=== PATIENT | female | born 1990 | race Caucasian/White ===

== ENCOUNTER 2016-05-30 04:54 | Inpatient (IN) | payer BC ==
[~2016-05-30] VITALS: Ht 175.3 cm; Wt 86.4 kg
[~2016-05-30 04:54] MED LIST: PRENTAB26 PO
[2016-05-30] MEDS ORDERED: LACTATED RINGER'S 1000ML 1,000 ML IV SCH ×2 (05:12→17:33)
[2016-05-30] MEDS ORDERED: LACTATED RINGER'S 1000ML 1,000 ML IV PRN (05:12)
--- NOTE | 2016-05-30 05:22 | Progress Note ---
Progress Note Date of Service May 30, 2016. Progress Note Admit Note 25 F P0000 at 39.4 weeks admitted with SROM clear fluid. Having irregular contractions mild rating pain as 3. FHT Cat 1. GBS is negative. Cervix /- 2/vertex/posterior/soft. EFW 7.5 lbs. Will have patient ambulate for now.
[2016-05-30 05:28] VITALS: Ht 175.3 cm; Wt 86.4 kg
[2016-05-30 06:25] LABS: MEAN CELL VOLUME 88.5 fL (80-100); PLATELET COUNT 241 K/uL (130-400); RED BLOOD COUNT 4.52 M/uL (4.2-5.4); WHITE BLOOD COUNT 14.83 K/uL (4.8-10.8)
[2016-05-30] MEDS ORDERED: LACTATED RINGER'S 1000ML 500 ML IV PRN (10:40)
[2016-05-30] MEDS ORDERED: OXYTOCIN 30 UNITS/500ML NSS IV PRN ×2 (10:45→17:45)
[2016-05-30] MEDS ORDERED: MISOPROSTOL 200 MCG TAB ONE ×2 (17:17→17:25)
[2016-05-30] MEDS ORDERED: METHYLERGONOVINE MALEATE 0.2 MG/ML AMP ONE (17:27)
[2016-05-30] MEDS ORDERED: HYDROCORTISONE ACETATE 25 MG SUPP PR PRN (17:45)
[2016-05-30] MEDS ORDERED: MISOPROSTOL 200 MCG TAB PR SCH (17:45)
[2016-05-30] MEDS ORDERED: DIPHTHERIA/TETANUS/PERTUSSIS 0.5 ML SYR/VIAL IM. ONE (17:45)
[2016-05-30] MEDS ORDERED: IBUPROFEN 600 MG TAB PO PRN (17:45)
[2016-05-30] MEDS ORDERED: LANOLIN OINT EXT PRN ×2 (17:45)
[2016-05-30] MEDS ORDERED: BENZOCAINE 20% AER SPR 82.5 GM CAN EXT PRN (17:45)
[2016-05-30] MEDS ORDERED: OXYCODONE/ACETAMINOPHEN 5-325 TAB PO PRN (17:45)
[2016-05-30] MEDS ORDERED: METHYLERGONOVINE MALEATE 0.2 MG/ML AMP IM ONE (17:45)
[2016-05-30] MEDS ORDERED: ACETAMINOPHEN 325 MG TAB PO PRN (17:45)
[2016-05-30] MEDS ORDERED: MEASLES, MUMPS & RUBELLA VIRUS VIAL SQ. ONE (17:45)
[2016-05-30] MEDS ORDERED: SUPERCREAM 0.870 % 15GM JAR EXT PRN (17:45)
[2016-05-30 21:15] VITALS: BP 142/86; PULSE 108; TEMP 36.8
[2016-05-30] MEDS: DOCUSATE SODIUM 100 MG CAP PO SCH (22:03)
--- NOTE | 2016-05-30 22:07 | DELIVERY SUMMARY ---
DATE OF OPERATION: 05/30/2016 TIME OF DELIVERY OF BABY: 16:53 p.m. TIME OF DELIVERY OF PLACENTA: 1705 p.m. DETAILS OF DELIVERY: The patient was found to be fully dilated and desired to push. She pushed for about 20 minutes and delivered the head without difficulty. Shoulders were delivered with minimal traction and baby was handed off to the mother where mouth and nose were suctioned and baby was dried and patient required delayed cord clamping after the pulsation and at 3 minutes, the pulsation of cord ended and the cord was clamped x2 and cut. It was a 3-vessel cord. Cord blood was obtained. The vagina and perineum were checked for lacerations. There were second degree vaginal lacerations on left lower third of vaginal wall and in the posterior vaginal wall. So they were repaired with 2-0 Vicryl in a running locked fashion. Excellent hemostasis was achieved. Then placenta was found to be in the vagina, delivered spontaneously intact and complete. Uterus was explored, found to be empty. The uterus was boggy and passing clots, EBL of 500 and IV oxytocin infusion was started. Bimanual massage was done and the patient was given 800 mcg of Cytotec rectally and the uterus became firm and the bleeding minimized. Baby was a viable female , Apgars 9/10. Weight is 3612 gr. No complications happened and I was present during whole procedure. I attest to the content of the Intraoperative Record and any orders documented therein. Any exceptions are noted below. MTDD
[2016-05-30 23:50] VITALS: BP 126/84; PULSE 86; TEMP 36.8
[2016-05-31 04:15] VITALS: BP 120/75; PULSE 83; TEMP 36.9
[2016-05-31 07:28] LABS: HEMATOCRIT 35.7 % (37-47)
[2016-05-31 08:00] VITALS: BP 101/69; PULSE 94; TEMP 36.9
[2016-05-31] MEDS: DOCUSATE SODIUM 100 MG CAP PO SCH ×2 (08:28→20:20)
[2016-05-31] MEDS: FERROUS SULFATE 325 MG TAB PO SCH (08:28)
--- NOTE | 2016-05-31 10:23 | OB/GYN Progress Note ---
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 Subjective conversation w/ patient, physical exam Ambulation: ambulating normally Voiding: no voiding problems Passing Gas: Yes Diet Tolerance: Clear Liquids Lochia: Moderate Review of Systems Constitutional: No chills, No fatigue, No fever, No problem reported, No sweats , No weakness, No weight loss Respiratory: No cough, No dyspnea at rest, No dyspnea on exertion, No hemoptysis, No problem reported, No shortness of breath, No sputum, No wheezing Cardiac: No PND, No chest pain, No claudication, No edema, No orthopnea, No palpitations, No problem reported Breast: No breast lump, No breast pain, No change in shape, No nipple discharge , No problem reported, No see HPI Abdomen: No GI bleeding, No constipation, No diarrhea, No nausea, No pain, No problem reported, No vomiting Female : No abnormal vaginal bleeding, No dysuria, No hematuria, No incontinence, No problem reported, No see HPI, No urinary frequency, No vaginal discharge Objective Vital Signs Date Time Temp Pulse Resp B/P Pulse Ox O2 Delivery O2 Flow Rate FiO2 05/31/16 08:05 Room Air 05/31/16 08:00 36.9 94 18 101/69 Room Air 05/31/16 04:15 36.9 83 16 120/75 Room Air 05/30/16 23:50 36.8 86 16 126/84 Room Air 05/30/16 23:50 Room Air 05/30/16 21:15 36.8 108 18 142/86 Room Air 05/30/16 21:15 Room Air Physical Exam General Appearance: WELL-APPEARING, WD/WN, NO APPARENT DISTRESS Respiratory/Chest: chest non-tender, lungs clear, normal breath sounds, no respiratory distress, no accessory muscle use Cardiovascular: regular rate, rhythm, no edema, no gallop, no JVD, no murmur Abdomen: normal bowel sounds, non tender, soft, no organomegaly, no pulsatile mass Fundus: Firm Incision Description: Clean, Dry & Intact Extremities: normal range of motion, non-tender, normal inspection, no pedal edema, no calf tenderness Laboratory Results Last 24 Hours Test 05/31/16 07:01 Hemoglobin 12.0 g/dL Hematocrit 35.7 % Assessment and Plan Day Number: 1 Continue Routine Care: Anticipate disch tomorrow
[2016-05-31 11:40] VITALS: BP 115/74; PULSE 96; TEMP 36.4; O2SAT 99
[2016-05-31 16:00] VITALS: BP 108/74; PULSE 93; TEMP 36.3
[2016-05-31] MEDS ORDERED: BISACODYL 5 MG TABEC PO SCH (20:00)
[2016-06-01 00:35] VITALS: BP 120/78; PULSE 94; TEMP 36.8; O2SAT 97
[2016-06-01 06:08] LABS: HEMATOCRIT 32.8 % (37-47); MEAN CELL VOLUME 91.1 fL (80-100); MEAN CORPUSCULAR HEMOGLOBIN 30.6 pg (25-34); MEAN CORPUSCULAR HGB CONC 33.5 g/dl (32-36); MEAN PLATELET VOLUME 10.4 fL (7.4-10.4); PLATELET COUNT 234 K/uL (130-400); WHITE BLOOD COUNT 14.31 K/uL (4.8-10.8)
[2016-06-01] MEDS ORDERED: BISACODYL 10 MG SUPP PR PRN (07:00)
[2016-06-01] MEDS: FERROUS SULFATE 325 MG TAB PO SCH (08:14)
[2016-06-01] MEDS: DOCUSATE SODIUM 100 MG CAP PO SCH (08:15)
[2016-06-01 08:56] VITALS: BP 129/86; PULSE 95; TEMP 36.7; O2SAT 99
[2016-06-01 09:28] VITALS: O2SAT 99
[2016-06-01] MEDS ORDERED: MTR600X PO (09:49)
--- NOTE | 2016-06-01 09:52 | Discharge Instructions ---
Discharge Instructions Date of Service Jun 01, 2016. Admission Reason for Admission: Spontaneous Rupture Of Membranes Discharge Discharge Diagnosis / Problem: term delivered Discharge Goals Goal(s): Routine recovery after delivery Activity Recommendations Activity Limitations: as noted below Lifting Limitations: no more than 10 pounds, gradually increase as tolerated Exercise/Sports Limitations: gradually increase as tolerated May Resume Sexual Activity: after follow-up appointment Shower/Bathe: no limitations Driving or Machine Use: resume 3 days after discharge . Instructions / Follow-Up Instructions / Follow-Up ACTIVITY RECOMMENDATIONS: * Gradual return to full activity over the next 2-3 weeks. * No lifting - nothing heavier than baby over the next 2-3 weeks. * Do not engage in vigorous exercise, sexual activity or sports until cleared by your physician. * Do not drive or operate any motorized equipment until cleared by your physician. * You may shower/bathe daily. BREAST CARE: If you are not breast feeding: * Wear a supportive bra 24 hours a day for one to two weeks. * Avoid stimulating your breasts and nipples as much as possible during the first few weeks after delivery. * When taking a shower, have the warm water hit your back, not breasts. * When your breasts feel full, apply ice packs. Usually three to four times a day helps ease the discomfort. * Take a mild pain medication (Tylenol/Motrin) when you are uncomfortable. If breast feeding: * Use breast milk to lubricate nipples. Lansinoh cream may be used for sore nipples. You do not need to remove cream prior to breast feeding. If using a different brand of cream, check the label for directions regarding removal of cream prior to nursing. * Wear a supportive bra. * If having problems with breasts or breast feeding, call a account consultant or your health care provider. EPISIOTOMY CARE: After delivery, if you have an episiotomy (stitches), the following steps will ease discomfort and aid healing. * For the first 24 hours after delivery, place ice packs next to your episiotomy to help reduce swelling. * After the first 24 hour-period, sitz baths, either portable or in the tub, are suggested. A shower with a shower arm sprayed over the episiotomy may be comforting. * Court care should be done after each voiding and bowel movement. Squirt warm water from a plastic bottle over the perineum (region of the body between the anus and urinary opening) and pat dry. * Use Dermoplast to ease discomfort. Shake container. [place] directly over the episiotomy. * Place a Tucks on a clean sanitary pad next to your episiotomy. OVER THE COUNTER MEDICATION: * For discomfort or pain, you may use Acetaminophen (Tylenol), Ibuprofen (Advil ), or Naproxen (Aleve) following the package directions. * For constipation you may use Colace following the package directions. SPECIAL CARE INSTRUCTIONS: When you are discharged from the hospital, it is important for you to follow the instructions listed below: * During the first week at home, you should be able to care for yourself and your baby. In addition, the usual light household activities are encouraged. * Limit your activities to the way you feel. Do not try to clean the house or move furniture. Be sensible. * If you actively engage in sports and have done so up until the time of your delivery, you may resume these activities as soon as you feel able. This may take up to one month or even longer. Use good judgment. * Continue to take your vitamins for at least six weeks after the of your baby. * Your diet need not be limited unless you were on a special diet before your delivery. Breast-feeding mothers need around 2500 calories per day and at least 64-80 ounces of fluid per day (8 to 10 glasses). * You should eat foods from the four major food groups. Crash diets or fad diets are to be avoided. Eating lean meats, fresh fruits and vegetables, low-fat dairy products, high fiber foods and a regular exercise program, will help you get back to your pre- weight without putting your health at risk. * Constipation is sometimes a problem after delivery. Take a mild laxative as needed. If breast feeding, Milk of Magnesia is acceptable to use. You may use a suppository or Fleets enema if no episiotomy. * A daily shower or tub bath is suggested. Be sure to thoroughly and gently dry the perineum. * A bloody vaginal discharge will usually continue until around four weeks post . A small amount of bleeding may continue for as long as six weeks. Vaginal discharge changes from the bright red bleeding after delivery to pink then brownish and finally yellowish-pink before becoming white and disappearing. * Bleeding may increase with activity. Your first period may come in 4-8 weeks. If you are breast feeding, your period may be delayed even longer. * [place] (sex) can begin whenever both you and your partner feel comfortable and do not have any form of genital infection. It is recommended that you wait until after your return appointment and discuss with your physician. If you have questions, please talk to your health care practitioner. A condom should be used to prevent infection and . * Foreplay, gentle intercourse and lubrication is very important the first several times to prevent pain. A water-based lubricant such as K-Y jelly or Astroglide may be used. * Tampons may be used six weeks after delivery. * Douching should be avoided for 6 weeks after delivery. * If you have RH negative blood and your baby is RH positive, you will receive RHOGAM by injection prior to discharge. The nurse will give you a card to keep with you that has the date and place that you received RHOGAM after delivery. * During your care, you had a Rubella screen done to check for the presence of rubella antibodies in your blood. If your test was negative, you will receive a Rubella vaccine prior to discharge. This vaccine may cause a fever, soreness at the injection site and flu-like symptoms. If these symptoms persist, notify your health care practitioner. is not advised for three months after a Rubella vaccine. There is a higher chance of having a baby with defects if conceived within three months of getting the vaccine. * If you were discharged 24 hours from delivery or before 48 hours: Visiting nurses will come to your home 48 hours after discharge to assess you and your baby. The visiting nurse will meet with you while you are in the hospital to arrange a time and get directions to your home. * Verbalizes understanding of car seat law as reviewed with patient nursing. * Car Seat hand-out given and reviewed with patient by nursing. * Shaken baby information reviewed with patient by nursing. Call you doctor if: * Heavy bleeding (saturating several pads an hour) or passing clots the size of your fist. * A fever >101 degrees F (38.3 degrees C) on two occasions four hours apart and/or chills. * Unusual pain in the pelvic or vaginal areas. * "Baby Blues" lasting longer than two weeks. If you have any questions or concerns, call your health care practitioner at . FOLLOW-UP VISIT: * Please call the office at to schedule a 6 week examination. It is important you keep this appointment. * It is important for you to make arrangements for either yearly or twice yearly check-ups thereafter. Current Hospital Diet Patient's current hospital diet: Regular OB Diet Discharge Diet Recommended Diet: Regular OB Diet Fluid Restriction: None Pending Studies Studies pending at discharge: no Medical Emergencies . Who to Call and When: Medical Emergencies: If at any time you feel your situation is an emergency, please call 911 immediately. . Non-Emergent Contact Non-Emergency issues call your: Primary Care Provider . . "Provider Documentation" section prepared by Edi Hurt. . VTE Core Measure Inpt VTE Proph given/why not?: Treatment not indicated
== END 2016-06-01 12:15 | disposition home or self-care (01) | DRG 775 ==
LOC: C.OPB 04:54 → C.LD 04:55 → C.OPB 05:19 → C.LD 05:19 → C.OBG 21:13
PROVIDERS: ADMIT Obstetrics & Gynecology; ATTEND Obstetrics & Gynecology
PROC: 0KQM0ZZ Repair Perineum Muscle, Open Approach (ICD-10-PCS; principal; 2016-05-30)
PROC: 10E0XZZ Delivery of Products of Conception, External Approach (ICD-10-PCS; principal; 2016-05-30)
DX: O42.02 Full-term premature rupture of membranes, onset of labor within 24 hours of rupture (principal); Z37.0 Single live birth; O70.1 Second degree perineal laceration during delivery; Z3A.39 39 weeks gestation of pregnancy

== ENCOUNTER 2019-06-28 02:12 | Inpatient (IN) ==
--- OUTSIDE RECORDS SUMMARY | 2019-06-28 02:23 | External Medical Summary | Continuity of Care Document ---
:1990 Author Name Sanjuanita Craft Address Unavailable Unavailable , Care Team Providers Name Role Phone Mariia Craft Unavailable [email or web address] Active medical history not documented Allergies and Adverse Reactions Allergy history not documented Medications Medications not documented Procedures Procedures not documented Immunizations Immunizations not documented Plan of Treatment Planned Observations Planned Goals not documented Results No Known Results Results not documented
[2019-06-28] MEDS ORDERED: LACTATED RINGER'S 1,000 ML IV PRN (03:16)
[2019-06-28] MEDS ORDERED: CEFAZOLIN 2000MG 2,000 MG/15 ML SYR IV STA (03:16)
[2019-06-28] MEDS ORDERED: OXYTOCIN 30 UNITS/500 ML BAG IV PRN ×3 (03:16→10:19)
[2019-06-28 03:43] LABS: Hematocrit (blood only) 38.6 % (37-47); Hemoglobin 13.1 g/dL (12.0-16.0); Mean Corpuscular Volume 88.5 fL (80-100); Mean Platelet Volume 10.1 fL (7.4-10.4); Platelet Count 252 K/uL (130-400); RDW Coefficient of Variation 13.5 % (11.5-14.5); RDW Standard Deviation 43.9 fL (36.4-46.3); Red Blood Count 4.36 M/uL (4.2-5.4); White Blood Count 10.39 K/uL (4.8-10.8)
[2019-06-28 04:07] LABS: Mean Corpuscular Hgb Conc 33.9 g/dL (32-36)
--- NOTE | 2019-06-28 05:20 | Obstetrical Progress Note ---
Date of Service June 28, 2019 Assessment & Plan Admission and Anticipated Discharge Date Admission Date: June 28, 2019 Subjective Pt doing well SROM @ 1200 AM 06/28/19 FHR : CAT1 Ctx; Irregular, mild intensity VE; /-2 Ancef for GBS prophylaxis Discussed starting Pitocin augmentation Results & Data ([facility]) Vital Signs (Past 12 Hours) Vital Signs Temp Pulse Resp BP 06/28/19 02:38 36.9 C 93 H 16 125/79 06/28/19 02:35 93 H 125/79
[2019-06-28] MEDS ORDERED: CEFAZOLIN 3000MG/72.5 ML BAG IV SCH (08:00)
[2019-06-28] MEDS ORDERED: CEFAZOLIN 1000MG 1,000 MG/7.5 ML SYR IV SCH (08:00)
--- NOTE | 2019-06-28 09:55 | Delivery Summary ---
Vaginal Delivery Summary Date of Service June 28, 2019 Vaginal Delivery Summary Delivery Note live male FABIAN over intact perineum with delayed cord clamping and Apgars 8/9 weight pending. Cord blood obtained with spontaneous delivery of intact placenta. No tears. EBL 100 ml. Final sponge and instrument count are correct. Mom and baby stable.
[2019-06-28] MEDS ORDERED: IBUPROFEN 600 MG TAB PO PRN (10:19)
[2019-06-28] MEDS ORDERED: ACETAMINOPHEN 325 MG TAB PO PRN (10:19)
[2019-06-28] MEDS ORDERED: DIPHTHERIA/TETANUS/PERTUSSIS 0.5 ML SYR/VIAL IM ONE (10:19)
[2019-06-28] MEDS ORDERED: BENZOCAINE 20% AER SPR 82.5 GM CAN EXT PRN (10:19)
[2019-06-28] MEDS ORDERED: bisacodyL 10 MG SUPP PR PRN (10:19)
[2019-06-28] MEDS ORDERED: SUPERCREAM 0.870% 15 GM JAR EXT PRN (10:19)
[2019-06-28] MEDS ORDERED: HYDROCORTISONE ACETATE 25 MG SUPP PR PRN (10:19)
[2019-06-28] MEDS: DOCUSATE SODIUM 100 MG CAP PO SCH (20:28)
[2019-06-29 06:49] LABS: Hematocrit (blood only) 38.3 % (37-47); Hemoglobin 12.8 g/dL (12.0-16.0); Mean Corpuscular Hgb Conc 33.4 g/dL (32-36); Mean Corpuscular Volume 89.9 fL (80-100); Mean Platelet Volume 10.6 fL (7.4-10.4); Platelet Count 235 K/uL (130-400); RDW Coefficient of Variation 13.9 % (11.5-14.5); RDW Standard Deviation 45.4 fL (36.4-46.3); Red Blood Count 4.26 M/uL (4.2-5.4); White Blood Count 14.67 K/uL (4.8-10.8)
--- NOTE | 2019-06-29 07:07 | Obstetrical Progress Note ---
Date of Service June 29, 2019 Assessment & Plan Admission and Anticipated Discharge Date Admission Date: June 28, 2019 Subjective PPD#1 doing well wants to go home if possible passing gas tolerating diet Physical Exam Constitutional: WD/WN, vitals as above comfortable abdomen soft and non- tender neg edema neg Gab's Results & Data ([facility]) Vital Signs (Past 12 Hours) Vital Signs Temp Pulse Resp BP Pulse Ox 06/29/19 03:30 36.8 C 79 18 127/85 99 06/28/19 23:00 36.8 C 76 18 137/87 99 06/28/19 20:15 37.1 C 78 18 120/86 97 Laboratory Results Laboratory Results - last 72 hr 06/28/19 06/29/19 03:32 06:23 WBC 10.39 14.67 H RBC 4.36 4.26 Hgb 13.1 12.8 Hct 38.6 38.3 MCV 88.5 89.9 MCH 30.0 30.0 MCHC 33.9 33.4 RDW Std Deviation 43.9 45.4 RDW Coeff of Shima 13.5 13.9 Plt Count 252 235 MPV 10.1 10.6 H
[2019-06-29] MEDS ORDERED: PRENATAL VITAMIN 1 TAB PO SCH (08:00)
[2019-06-29] MEDS: DOCUSATE SODIUM 100 MG CAP PO SCH (08:36)
[2019-06-29] MEDS ORDERED: NON-FORMULARY MEDICATION (Prenatal Vit-Iron Fum-Folic Ac [Prenatal Vitamin] 1 TAB) PO SCH (09:00)
[2019-06-29] MEDS ORDERED: bisacodyL 5 MG TABEC PO SCH (20:00)
== END 2019-06-29 16:25 | disposition home or self-care (01) | DRG 807 ==
LOC: OPB 02:12 → 4S1 02:22 → 4S2 14:30